=== PATIENT | male | born 1940 | race Caucasian/White ===

== ENCOUNTER 2020-05-27 06:51 | Emergency (ER) | payer MEDICARE, BC ==
[~2020-05-27] VITALS: Ht 175.3 cm; Wt 75.0 kg
--- NOTE | 2020-05-27 07:50 | NUR ---
US tech at bedside.
[2020-05-27] MEDS ORDERED: LIDOcaine 2% 10ml TOPICAL JELLY (Urojet) MM ONE (08:30)
--- NOTE | 2020-05-27 08:42 | NUR ---
XRAY AT BEDSIDE.
--- NOTE | 2020-05-27 08:47 | NUR ---
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
[2020-05-27 09:19] LABS: BASOPHILS # (AUTO) 0.1 X10'3 (0-0.2); EOSINOPHILS # (AUTO) 0.5 X10'3 (0-0.9); HEMATOCRIT 28.9 % (42.0-52.0); HEMOGLOBIN 9.4 g/dl (14.0-17.9); LYMPHOCYTES # (AUTO) 1.1 X10'3 (1.1-4.8); MONOCYTES # (AUTO) 0.4 X10'3 (0-0.9)
[2020-05-27 09:22] LABS: BASOPHILS % (AUTO) 2.1 % (0-1); EOSINOPHILS % (AUTO) 8.9 % (0-6); LYMPHOCYTES % (AUTO) 20.3 % (21-51); MEAN CORPUSCULAR HEMOGLOBIN 30.8 PG (27.0-31.0); MEAN CORPUSCULAR HGB CONC 32.4 g/dL (33.0-36.5); MEAN PLATELET VOLUME 8.6 FL (7.4-10.4); MONOCYTES % (AUTO) 7.7 % (2-12); NEUTROPHILS # (AUTO) 3.3 X10'3 (1.8-7.7); PLATELET COUNT 188 X10'3 (140-440); RED BLOOD COUNT 3.04 X10'6 (4.70-6.10); RED CELL DISTRIBUTION WIDTH 15.8 % (11.5-14.5); WHITE BLOOD COUNT 5.5 X10'3 (4.5-11.0)
[2020-05-27 09:33] LABS: ALANINE AMINOTRANSFERASE 64 U/L (12-78); ALBUMIN 3.1 G/DL (3.4-5.0); ALKALINE PHOSPHATASE 63 IU/L (46-116); ANION GAP 9 (8-16); ASPARTATE AMINO TRANSFERASE 46 U/L (10-37); BILIRUBIN,TOTAL 0.4 MG/DL (0.1-1.0); BLOOD UREA NITROGEN 67 MG/DL (7-18); BUN/CREATININE RATIO 10.7 (5.4-32.0); CALCIUM 8.5 MG/DL (8.5-10.1); CHLORIDE 108 MMOL/L (99-107); CREATININE 6.28 MG/DL (0.60-1.10); GLUCOSE 89 MG/DL (70-104); POTASSIUM 5.1 MMOL/L (3.5-5.1); SODIUM 140 MMOL/L (135-145); TOTAL CARBON DIOXIDE 22.9 MMOL/L (24-32); TOTAL PROTEIN 6.2 G/DL (6.4-8.2); eGFR 9 ML/MIN
[2020-05-27 10:00] VITALS: BP 166/69
--- NOTE | 2020-05-27 10:08 | NUR ---
CALL AT THIS TIME TO [facility], SPOKE WITH SHRAON, REPORT GIVEN, SHARON TO CALL [facility] FOR TRANSPORTATION SENIOR RESEARCH FELLOW.
== END 2020-05-27 11:16 | disposition home or self-care (01) ==
LOC: ER 06:52
DX: T19.1XXA Foreign body in bladder, initial encounter (principal); T83.098A Other mechanical complication of other urinary catheter, initial encounter; I10 Essential (primary) hypertension; J45.909 Unspecified asthma, uncomplicated; Y84.6 Urinary catheterization as the cause of abnormal reaction of the patient, or of later complication, without mention of misadventure at the time of the procedure; Y92.89 Other specified places as the place of occurrence of the external cause
CPT/HCPCS: 36415; 51702; 74018; 76857; 80053; 85025; 99285